=== PATIENT | male | born 1985 | race Caucasian/White ===

== ENCOUNTER 2023-06-04 13:19 | Observation (INO) | payer BC ==
[2023-06-04 13:57] VITALS: RESP 18
[2023-06-04] MEDS ORDERED: ONDANSETRON 4 MG/2 ML VIAL IVP PRN (14:33)
[2023-06-04] MEDS ORDERED: NALOXONE 0.4 MG/ML 1 ML VIAL IV PRN (14:33)
[2023-06-04] MEDS ORDERED: HYDROmorphone 0.5 MG/0.5 ML SYRINGE IVP PRN (14:33)
[2023-06-04] MEDS ORDERED: ACETAMINOPHEN TAB 325 MG TAB PO PRN (14:33)
--- NOTE | 2023-06-04 14:53 | ED ---
General Adult HPI - General Chief complaint: Abdominal Pain Stated complaint: Appendicitis-came from radiology Time Seen by Provider: 06/04/23 14:09 Source: patient, RN notes reviewed, old records reviewed Mode of arrival: ambulatory Limitations: no limitations - History of Present Illness Initial comments: 38-year-old male presenting for evaluation of right lower quadrant abdominal pain over the past 3-4 days. Patient had come from outpatient CT with CT confirmed appendicitis. He's had no fever. No vomiting. He has had an appetite although he's had early satiety. No diarrhea. No prior medical conditions. - Related Data Allergies Allergy/AdvReac Type Severity Reaction Status Date / Time No Known Allergies Allergy Verified 06/04/23 13:52 Review of Systems ROS Statement: Those systems with pertinent positive or pertinent negative responses have been documented in the HPI. ROS Other: All systems not noted in ROS Statement are negative. Past Medical History Past Medical History: No Reported History History of Any Multi-Drug Resistant Organisms: None Reported Past Surgical History: No Surgical Hx Reported Past Psychological History: No Psychological Hx Reported Smoking Status: Never smoker Past Alcohol Use History: Occasional Past Drug Use History: None Reported General Exam Limitations: no limitations General appearance: alert, in no apparent distress Head exam: Present: atraumatic, normocephalic Eye exam: Present: normal appearance, PERRL ENT exam: Present: normal exam Neck exam: Present: normal inspection. Absent: tenderness, meningismus Respiratory exam: Present: normal lung sounds bilaterally. Absent: respiratory distress, wheezes Cardiovascular Exam: Present: regular rate, normal rhythm GI/Abdominal exam: Present: soft, tenderness (Right lower quadrant). Absent: distended Extremities exam: Present: normal inspection, normal capillary refill. Absent: pedal edema Neurological exam: Present: alert, oriented X3, CN II-XII intact. Absent: motor sensory deficit Psychiatric exam: Present: normal affect, normal mood Skin exam: Present: warm, dry, intact. Absent: cyanosis, diaphoretic Course Vital Signs 06/04/23 13:49 Temperature 98.4 F Pulse Rate 61 Respiratory 18 Rate Blood Pressure 129/88 O2 Sat by Pulse 99 Oximetry Medical Decision Making - Medical Decision Making Was pt. sent in by a medical professional or institution (, PA, DIE SINKER APPRENTICE, urgent care, hospital, or jail...) When possible be specific @ -No Did you speak to anyone other than the patient for history (EMS, parent, family, police, friend...)? What history was obtained from this source @ -No Did you review nursing and triage notes (agree or disagree)? Why? @ -I reviewed and agree with nursing and triage notes Were old charts reviewed (outside hosp., previous admission, EMS record, old EKG, old radiological studies, urgent care reports/EKG's, jail records)? Report findings @ -No old charts were reviewed Differential Diagnosis (chest pain, altered mental status, abdominal pain women, abdominal pain men, vaginal bleeding, weakness, fever, dyspnea, syncope, headache, dizziness, GI bleed, back pain, seizure, CVA, palpatations, mental health, musculoskeletal)? @ Differential Abdominal Pain Men: Appendicitis, cholecystitis, diverticulosis, ischemic bowel, pancreatitis, hepatitis, UTI, gastroenteritis, AAA, incarcerated hernia, bowel obstruction, c onstipation, inflammatory bowel, hepatitis, peptic ulcer disease, splenic infarction, perforated viscus, testicular torsion, this is not meant to be an all-inclusive list EKG interpreted by me (3pts min.). @ -As above X-rays interpreted by me (1pt min.). @ -None done CT interpreted by me (1pt min.). @ CT showing acute appendicitis U/S interpreted by me (1pt. min.). @ -None done What testing was considered but not performed or refused? (CT, X-rays, U/S, labs)? Why? @ -None What meds were considered but not given or refused? Why? @ -None Did you discuss the management of the patient with other professionals (professionals i.e. , PA, DIE SINKER APPRENTICE, lab, RT, psych nurse, clinical social work therapist, computer systems technology instructor, teacher, law enforcement officer, director case)? Give summary @ -Dr Dumont Was smoking cessation discussed for >3mins.? @ -No Was critical care preformed (if so, how long)? @ -No Were there social determinants of health that impacted care today? How? (Homelessness, low income, unemployed, alcoholism, drug addiction, transportation, low edu. Level, literacy, decrease access to med. care, penitentiary, rehab)? @ -No Was there de-escalation of care discussed even if they declined (Discuss DNR or withdrawal of care, Hospice)? DNR status @ -No What co-morbidities impacted this encounter? (DM, HTN, Smoking, COPD, CAD, Cancer, CVA, ARF, Chemo, Hep., AIDS, mental health diagnosis, sleep apnea, morbid obesity)? @ -None Was patient admitted / discharged? Hospital course, mention meds given and route, prescriptions, significant lab abnormalities, going to OR and other pertinent info. @ -[30-year-old male with outpatient CT showing appendicitis. Patient admitted to general surgery for management of acute appendicitis. Laboratory studies have been ordered, results pending. Zosyn started in the emergency department. Patient will be on a clear liquid diet for today and nothing by mouth after midnight for likely surgery tomorrow. Undiagnosed new problem with uncertain prognosis? @ -No Drug Therapy requiring intensive monitoring for toxicity (Heparin, Nitro, Insuli n, Cardizem)? @ -No Were any procedures done? @ -No Diagnosis/symptom? @ Acute appendicitis Acute, or Chronic, or Acute on Chronic? @ -[Acute Uncomplicated (without systemic symptoms) or Complicated (systemic symptoms)? @ -default Side effects of treatment? @ -No Exacerbation, Progression, or Severe Exacerbation? @ -No Poses a threat to life or bodily function? How? (Chest pain, USA, VT, pneumonia, PE, COPD, DKA, ARF, appy, cholecystitis, CVA, Diverticulitis, Homicidal, Suicidal, threat to staff... and all critical care pts) @ -Yes, sepsis Disposition Clinical Impression: Acute appendicitis Disposition: ADMITTED IP TO THIS HOSP Condition: Stable Is patient prescribed a controlled substance at d/c from ED?: No Referrals: Yuriy Parson MD [Primary Care Provider] - 1-2 days Time of Disposition: 14:53
[2023-06-04 15:26] LABS: Basophils # (A) 0.1 k/uL (0-0.2); Basophils % (A) 1 %; Eosinophils # (A) 0.1 k/uL (0-0.7); Eosinophils % (A) 1 %; HCT 44.1 % (39.0-53.0); HGB 15.5 gm/dL (13.0-17.5); Lymphocytes # (A) 1.5 k/uL (1.0-4.8); Lymphocytes % (A) 22 %; MCH 32.1 pg (25.0-35.0); MCHC 35.1 g/dL (31.0-37.0); MCV 91.5 fL (80.0-100.0); Mean Platelet Volume 7.5; Monocytes # (A) 0.4 k/uL (0-1.0); Monocytes % (A) 6 %; Neutrophils # (A) 4.7 k/uL (1.3-7.7); Neutrophils % (A) 68 %; Platelet Count 250 k/uL (150-450); RBC 4.82 m/uL (4.30-5.90); RDW 12.6 % (11.5-15.5); WBC 6.9 k/uL (3.8-10.6)
[2023-06-04 15:33] LABS: ALT 36 U/L (4-49); AST 35 U/L (17-59); African American GFR (CKD) >90 (>60 ml/min/1.73 sqM); Albumin 4.6 g/dL (3.5-5.0); Alkaline Phosphatase 111 U/L (38-126); Anion Gap 12 mmol/L; Blood Urea Nitrogen 16 mg/dL (9-20); Calcium 9.1 mg/dL (8.4-10.2); Carbon Dioxide 25 mmol/L (22-30); Chloride 104 mmol/L (98-107); Glucose 82 mg/dL (74-99); Non-African American GFR(CKD) >90 (>60 ml/min/1.73 sqM); Sodium 141 mmol/L (137-145); Total Bilirubin 0.9 mg/dL (0.2-1.3); Total Protein 7.8 g/dL (6.3-8.2)
[2023-06-04 15:40] LABS: INR 0.9 (<1.2); Partial Thromboplastin Time 27.1 sec (22.0-30.0); Prothrombin Time 9.7 sec (9.0-12.0)
[2023-06-04] MEDS: SODIUM CHLORIDE 0.9% 1,000 ML IV SCH ×2 (16:00→23:49)
[2023-06-04] MEDS: PIPERACILLIN-TAZOBACTAM 3.375 GM in SODIUM CHLORIDE 0.9% 100 ML IVPB SCH (16:55)
[2023-06-05] MEDS: PIPERACILLIN-TAZOBACTAM 3.375 GM in SODIUM CHLORIDE 0.9% 100 ML IVPB SCH ×2 (00:20→09:16)
[2023-06-05 07:51] VITALS: BP 113/69; PULSE 69; TEMP 98.3
[2023-06-05] MEDS: SODIUM CHLORIDE 0.9% 1,000 ML IV SCH (09:20)
--- NOTE | 2023-06-05 10:49 | P.GSCN ---
History of Present Illness Consult date: 06/05/23 History of present illness: CHIEF COMPLAINT: Abdominal pain HISTORY OF PRESENT ILLNESS: This is a 38-year-old male who presented to the hospital with complaints of right lower quadrant abdominal pain. Patient reports that Friday to Friday she had been feeling very gaseous having heartburn. And then started having right lower quadrant pain for the last 3 days. Denies any nausea or vomiting. Denies any fevers. Patient had computed tomography scan completed that reports acute uncomplicated appendicitis with appendicolith. Patient started on IV antibiotics. Patient reports no abdominal pain today. He is requesting to eat. And he would like to avoid having surgery. Patient denies any prior abdominal surgeries. Denies any cardiac history. PAST MEDICAL HISTORY: See below PAST SURGICAL HISTORY: See below MEDICATIONS: See below ALLERGIES: See below SOCIAL HISTORY: No illicit drug use. REVIEW OF SYSTEMS: CONSTITUTIONAL: Denies fever or chills. HEENT: Denies blurred vision, vision changes, or eye pain. Denies hemoptysis CARDIOVASCULAR: Denies chest pain or pressure. RESPIRATORY: No shortness of breath. GASTROINTESTINAL: See HPI for pertinent findings HEMATOLOGIC: Denies bleeding disorders. GENITOURINARY: Denies any blood in urine or increased urinary frequency. SKIN: Denies pruitis. Denies rash. PHYSICAL EXAM: VITAL SIGNS: Reviewed GENERAL: Well-developed in no acute distress. HEENT: No sclera icterus. Extraocular movements grossly intact. Moist buccal mucosa. Head is atraumatic, normocephalic. No nasal drainage. ABDOMEN: Soft. Obese. Nondistended. Tenderness with palpation to right lower quadrant. NEUROLOGIC: Alert and oriented. Cranial nerves II through XII grossly intact. LABORATORY DATA: WBC 6.9 Hgb 15.5 platelets 250 INR 0.9 Sodium 141 potassium 4.0 creatinine 0.85 Lactic acid 1.0 IMAGING: computed tomography scan completed that reports acute uncomplicated appendicitis with appendicolith. ASSESSMENT: 1. Acute uncomplicated appendicitis with appendicolith PLAN: -No surgical intervention planned -Continue antibiotics -Advance diet to regular -Anticipate discharge later this afternoon with antibiotics Physician Pit Crew Support Worker note has been reviewed by physician. Signing provider agrees with the documented findings, assessment, and plan of care. Past Medical History Past Medical History: No Reported History History of Any Multi-Drug Resistant Organisms: None Reported Past Surgical History: No Surgical Hx Reported Past Psychological History: No Psychological Hx Reported Smoking Status: Never smoker Past Alcohol Use History: Occasional Past Drug Use History: None Reported Medications and Allergies Home Medications Medication Instructions Recorded Confirmed Type No Known Home Medications 06/04/23 06/04/23 History Allergies Allergy/AdvReac Type Severity Reaction Status Date / Time No Known Allergies Allergy Verified 06/04/23 15:36 Surgical - Exam Vital Signs Temp Pulse Resp BP Pulse Ox 98.4 F 61 18 129/88 99 06/04/23 13:49 06/04/23 13:49 06/04/23 13:49 06/04/23 13:49 06/04/23 13:49 Results - Labs 06/04/23 14:59 06/04/23 14:59 Diabetes panel 06/04/23 Range/Units 14:59 Sodium 141 (137-145) mmol/L Potassium 4.0 (3.5-5.1) mmol/L Chloride 104 (98-107) mmol/L Carbon Dioxide 25 (22-30) mmol/L BUN 16 (9-20) mg/dL Creatinine 0.85 (0.66-1.25) mg/dL Glucose 82 (74-99) mg/dL Calcium 9.1 (8.4-10.2) mg/dL AST 35 (17-59) U/L ALT 36 (4-49) U/L Alkaline Phosphatase 111 (38-126) U/L Total Protein 7.8 (6.3-8.2) g/dL Albumin 4.6 (3.5-5.0) g/dL Calcium panel 06/04/23 Range/Units 14:59 Calcium 9.1 (8.4-10.2) mg/dL Albumin 4.6 (3.5-5.0) g/dL Pituitary panel 06/04/23 Range/Units 14:59 Sodium 141 (137-145) mmol/L Potassium 4.0 (3.5-5.1) mmol/L Chloride 104 (98-107) mmol/L Carbon Dioxide 25 (22-30) mmol/L BUN 16 (9-20) mg/dL Creatinine 0.85 (0.66-1.25) mg/dL Glucose 82 (74-99) mg/dL Calcium 9.1 (8.4-10.2) mg/dL Adrenal panel 06/04/23 Range/Units 14:59 Sodium 141 (137-145) mmol/L Potassium 4.0 (3.5-5.1) mmol/L Chloride 104 (98-107) mmol/L Carbon Dioxide 25 (22-30) mmol/L BUN 16 (9-20) mg/dL Creatinine 0.85 (0.66-1.25) mg/dL Glucose 82 (74-99) mg/dL Calcium 9.1 (8.4-10.2) mg/dL Total Bilirubin 0.9 (0.2-1.3) mg/dL AST 35 (17-59) U/L ALT 36 (4-49) U/L Alkaline Phosphatase 111 (38-126) U/L Total Protein 7.8 (6.3-8.2) g/dL Albumin 4.6 (3.5-5.0) g/dL
--- NOTE | 2023-06-05 13:50 | P.DS ---
Providers Date of admission: 06/04/23 14:56 Expected date of discharge: 06/05/23 Attending physician: Chuy Dumont Primary care physician: Yuriy Parson Hospital Course: Discharge diagnosis 1. Acute uncomplicated appendicitis with appendicolith Hospital course This is a 38-year-old male who presented to the hospital with complaints of right lower quadrant abdominal pain. Patient had computed tomography scan completed that reports acute uncomplicated appendicitis with appendicolith. Patient started on IV antibiotics. Patient's abdominal pain has resolved. He is tolerating diet. He's afebrile. He has been up and ambulating. Patient will be discharged with oral antibiotics. Patient did not want any surgery at this time. Patient will be discharged with antibiotics with outpatient follow- up. Patient is stable for discharge. Physician Carbon Capture Power Plant Manager note has been reviewed by physician. Signing provider agrees with the documented findings, assessment, and plan of care. Patient Condition at Discharge: Stable Plan - Discharge Summary New Discharge Prescriptions: New metroNIDAZOLE [Flagyl] 500 mg PO TID 10 Days #30 tab Levofloxacin [Levaquin] 500 mg PO DAILY 10 Days #10 tab Discharge Medication List Levofloxacin [Levaquin] 500 mg PO DAILY 10 Days #10 tab 06/05/23 [Rx] metroNIDAZOLE [Flagyl] 500 mg PO TID 10 Days #30 tab 06/05/23 [Rx] Follow up Appointment(s)/Referral(s): Yuriy Parson MD [Primary Care Provider] - 1-2 days Chuy Dumont MD [STAFF PHYSICIAN] - 1 Week Activity/Diet/Wound Care/Special Instructions: Use Tylenol or Motrin [id number] as needed for pain Discharge Disposition: HOME SELF-CARE
== END 2023-06-05 14:38 | disposition home or self-care (01) ==
LOC: EC 13:19 → 6NMEDSUR 14:56
PROVIDERS: ADMIT Surgery; ATTEND Surgery
DX: K35.80 Unspecified acute appendicitis (principal); K38.1 Appendicular concretions
CPT/HCPCS: 96365; 96366 ×2; 99284; 80053; 83605; 85025; 85610; 85730; 87040; G0378 ×2; J2543 ×2

== ENCOUNTER → 2023-06-04 | Outpatient (CLI) | payer BC ==
--- NOTE | 2023-06-04 13:14 | CT ---
EXAMINATION TYPE: CT abdomen pelvis w con CT DLP: 777.90 mGycm, Automated exposure control for dose reduction was used. DATE OF EXAM: 06/04/2023 1:03 PM COMPARISON: None CLINICAL INDICATION:Male, 38 years old with history of R10.31 RLQ PAIN; RLQ pain since Friday TECHNIQUE: Axial CT of the abdomen and pelvis. Sagittal and coronal reformats were created on a [employer] workstation. Contrast used:100mL mL of Isovue 300 with IV Contrast, (none if empty) Oral contrast used: without Oral Contrast (none if empty) FINDINGS: LOWER CHEST: Unremarkable ABDOMEN LIVER: Unremarkable GALLBLADDER AND BILE DUCTS: Unremarkable. PANCREAS: Unremarkable. SPLEEN: Unremarkable. ADRENAL GLANDS: Unremarkable. KIDNEYS AND URETERS: No evidence of hydronephrosis or renal calculus. The ureters are unremarkable. PELVIS BLADDER: Unremarkable REPRODUCTIVE: Unremarkable. ABDOMEN & PELVIS STOMACH AND BOWEL: No evidence of bowel obstruction. The appendix is dilated with fat stranding faith es in the adjacent fat. The appendix measures thickened up to 11 mm in thickness. There is an appendi colith present on series 4 image 63 measuring up to 3 mm. PERITONEUM/RETROPERITONEUM: No evidence of pneumoperitoneum or free fluid. VASCULATURE: No evidence of aortic aneurysm. MUSCULOSKELETAL: No acute osseous abnormalities. Mild disc degeneration changes are present throughou t the thoracolumbar spine. LYMPH NODES: No gross evidence for lymphadenopathy. SOFT TISSUE/ABDOMINAL WALL: Unremarkable IMPRESSION: Acute uncomplicated appendicitis with appendicolith.
== END | disposition home or self-care (01) ==
LOC: RADCTMAIN 12:34
PROVIDERS: ATTEND Family Medicine
DX: K35.80 Unspecified acute appendicitis (principal); R10.31 Right lower quadrant pain
CPT/HCPCS: 74177; Q9967

== ENCOUNTER → 2023-06-16 | Outpatient (CLI) | payer BC ==
--- NOTE | 2023-06-18 09:08 | CT ---
EXAMINATION TYPE: CT abdomen pelvis w con DATE OF EXAM: 06/16/2023 COMPARISON: 06/04/2023 HISTORY: f/u appendicitis CT DLP: 948.8 mGycm CONTRAST: CT scan of the abdomen and pelvis is performed with Oral Contrast and with IV Contrast, patient injec bozena with 70cc mL of Isovue 370. FINDINGS: LUNG BASES-: No visible nodule. No infiltrate. LIVER/GB: No calcified gallstones. No space occupying hepatic lesion. Biliary tree is of normal ca liber. PANCREAS: No inflammation. No distinct mass. SPLEEN: No splenic enlargement. No lesion seen. ADRENALS: No nodule. No thickening. KIDNEYS/BLADDER: No hydronephrosis. No nephrolithiasis. No distinct renal mass. Urinary bladder g rossly unremarkable. BOWEL: Again noted is thickening of the appendix measuring 10 mm with appendicoliths identified. Ther e is no evidence for rupture or abscess. Normal bowel caliber. No inflammation. Mild sigmoid divert iculosis without diverticulitis. GENITAL ORGANS: No gross abnormality. LYMPH NODES: No greater than 1cm abdominal or pelvic lymph nodes are appreciated. AORTA: No significant abnormality. OSSEOUS STRUCTURES: No significant abnormality is seen. OTHER: No significant additional abnormality is seen. IMPRESSION: 1. Noted are stable features of uncomplicated appendicitis. There is no evidence for interval rupture or abscess formation.
== END | disposition home or self-care (01) ==
LOC: RADCTMAIN 14:52
PROVIDERS: ATTEND Family Medicine
DX: K37 Unspecified appendicitis (principal)
CPT/HCPCS: 74177; Q9967

== ENCOUNTER → 2025-03-07 | Outpatient (CLI) | payer BC ==
--- NOTE | 2025-03-07 09:14 | US ---
EXAMINATION TYPE: US liver DATE OF EXAM: 03/07/2025 COMPARISON: CT(06/16/2023) CLINICAL INDICATION: Male, 39 years old with history of E78.1 PURE HYPERGLYCERIDEMIA; TECHNIQUE: Grayscale and color Doppler imaging of the right upper quadrant. FINDINGS: EXAM MEASUREMENTS: Liver Length: 16.3 cm Gallbladder Wall: 0.2 cm CBD: 0.4 cm, color Doppler imaging was utilized to isolate the common bile duct for measurement. Right Kidney: 11.2x6.0x4.8 cm HYDROCHLORIC ACID OPERATOR NOTES: Pancreas: wnl as best visualized Liver: slight heterogenous echotexture, no obvious abnormality seen Gallbladder: No stones seen Evidence for sonographic Cervantes's sign: No CBD: wnl Right Kidney: No hydronephrosis or masses seen IMPRESSION: No evidence for acute process. [facility] Mely Deal, , 03/07/2025 9:12 AM
== END | disposition home or self-care (01) ==
LOC: RADUSWWP 08:24
PROVIDERS: ATTEND Family Medicine
DX: E78.1 Pure hyperglyceridemia (principal)
CPT/HCPCS: 76705